=== PATIENT | female | born 1960 | race Caucasian/White ===

== ENCOUNTER 2017-03-20 06:33 | Day surgery (SDC) | payer MEDICAID ==
[~2017-03-20 06:33] MED LIST: ACETAMINOPHEN 1,000 MG/100 ML BTL IV ONE
[2017-03-20] MEDS ORDERED: BUPIVACAINE 0.25% W/EPI MPF 30ML VIAL IVP ONE (13:28)
[2017-03-20] MEDS ORDERED: ACETAMINOPHEN W/ CODEINE 300MG/30MG TABLET PO ONE (14:17)
[2017-03-20] MEDS ORDERED: PROPOFOL 10 MG/ML VIAL IV ONE (14:22)
[2017-03-20] MEDS ORDERED: LIDOCAINE 2% MDV (20MG/ML) 20ML VIAL IV ONE (14:22)
[2017-03-20] MEDS ORDERED: KETOROLAC 30 MG/ML VIAL IVP ONE (14:22)
[2017-03-20] MEDS ORDERED: SEVOFLURANE 250 ML INH ONE (14:22)
[2017-03-20] MEDS ORDERED: ONDANSETRON HCL IV 4 MG/2 ML VIAL IVP ONE (14:22)
[2017-03-20] MEDS ORDERED: FENTANYL PF 100MCG/2ML VIAL IV ONE (14:22)
[2017-03-20] MEDS ORDERED: MIDAZOLAM HCL 2MG/2ML VIAL IV ONE (14:22)
--- NOTE | 2017-03-24 09:50 | Operative Note ---
DATE OF SURGERY: 03/20/2017 Surgeon: Adilson Foreman DO PREOPERATIVE DIAGNOSES: 1. Torn medial meniscus of the left knee. 2. Chondromalacia of the left knee. POSTOPERATIVE DIAGNOSES: 1. Torn medial and lateral meniscus, left knee. 2. Medial mid patellar plica, left knee. 3. Chondromalacia of the patella, left knee. OPERATION: 1. Arthroscopic partial medial and lateral meniscectomy, left knee. 2. Arthroscopic resection of medial mid patellar plica. 3. Arthroscopic chondroplasty of patella, left knee. DESCRIPTION OF PROCEDURE: This 56-year-old female was taken to the operating room, placed in the supine position on the operating room table where general anesthesia was induced. The left lower extremity was elevated. It was exsanguinated and the tourniquet inflated to 300 mmHg. Arthroscopic knee sena applied. Left knee prepped with Hibiclens and draped in the usual sterile fashion. An inferolateral portal was established for the 4 mm arthroscope, and initial evaluation of the joint demonstrated normal appearance of the suprapatellar pouch but a medial mid patellar plica was present. There was also advanced degenerative disease of the patella, particularly on the median ridge and lateral facet. Utilizing an inferomedial portal, this was probed and grade 3 chondromalacia of the patella was identified and the chondroplasty was performed to stabilize the remaining articular cartilage there. The medial facet appeared to be relatively spared. The trochlea also appeared essentially normal, only minimal scuffing of the articular cartilage was present there. Resection of the medial mid patella plica was also performed. The lateral compartment was entered and the patient demonstrated a small radial tear of the lateral meniscus at approximately the 3-o'clock position. Utilizing the basket forceps and rotating shaver, we resected unstable flaps of the radial tear of the lateral meniscus. It was then re-probed and confirmed to be stable. The posterior horn was entirely normal. The intracondylar notch was examined and found to be normal. The medial compartment was entered and a complex tear of the medial meniscus was present. The apex of the tear being at approximately the 10-o'clock position. This was both flap and horizontal cleavage components. We utilized the basket forceps to resect back to the apex of the tear and then tapered in each direction to form a smooth contoured surface. We then used the rotating shaver to further smooth the trimmed edge of the meniscus. It was then re-probed and confirmed to be stable. The articular cartilage of both the medial and lateral compartments appeared to be essentially normal with only very, very minimal scuffing of the articular cartilage being identified but there were no unstable areas and it was not further disturbed. The joint was copiously irrigated and suctioned. The instruments were removed. The portals infiltrated with 0.25% Marcaine with epinephrine. Sterile dressings applied. Tourniquet and knee sena released and the patient taken to the recovery room in satisfactory condition. GROSS PATHOLOGY: This patient demonstrated grade 3 chondromalacia of the patella, complex tear of the posterior horn of the medial meniscus was present, a radial tear of the lateral meniscus also identified. CC: Dr. Mark KATZ
== END 2017-03-20 09:30 | disposition home or self-care (01) ==
LOC: SUR 06:33
PROVIDERS: ATTEND Orthopaedic Surgery
DX: S83.282A Other tear of lateral meniscus, current injury, left knee, initial encounter (principal); S83.242A Other tear of medial meniscus, current injury, left knee, initial encounter; M22.42 Chondromalacia patellae, left knee; E11.9 Type 2 diabetes mellitus without complications; Z79.4 Long term (current) use of insulin; Z79.84 Long term (current) use of oral hypoglycemic drugs; E03.9 Hypothyroidism, unspecified; I10 Essential (primary) hypertension; E78.00 Pure hypercholesterolemia, unspecified; M67.52 Plica syndrome, left knee
CPT/HCPCS: 29880; 29879; 01400; 36416; 82948; J1885; J2405; J3010

== ENCOUNTER 2018-02-26 19:38 | Emergency (ER) | payer MEDICAID ==
--- NOTE | 2018-02-26 19:52 | Emergency Department Record ---
History of Present Illness - General Chief Complaint: Dizziness Stated Complaint: DIZZY Time Seen by Provider: 02/26/18 19:41 Source: Patient Mode of Arrival: Ambulatory Limitations: No limitations - History of Present Illness Initial Comments: 57 yo female presents to ED for evaluation of "dizzy spells" that occur at random per the patient. Patient denies that changes in position or head movements specifically worsen her symptoms. Patient denies focal weakness symptoms, numbness, or tingling symptoms. Patient reports a history of previous symptoms, states that her thyroid was a problem previously. MD Complaint: Dizziness Onset/Timin -: Days(s) Timing: Unsure Description: "Room spinning" History of Same: Yes History of Trauma: No Severity: Moderate Improves With: Nothing Worsens With: Nothing Associated Symptoms: Denies other symptoms - Harley Coma Scale Eye Response: (4) Open spontaneously Motor Response: (6) Obeys commands Verbal Response: (5) Oriented Harley Total: 15 - Related Data Previous Rx's Medication Instructions Recorded Meclizine HCl [Antivert] 25 mg PO Q8H PRN #15 tablet 02/26/18 Allergies Allergy/AdvReac Type Severity Reaction Status Date / Time hydromorphone Allergy Severe ANAPHYLAXIS Verified 02/26/18 20:19 Influenza Virus Vaccines Allergy Severe unsure Verified 02/26/18 20:19 Tetanus Vaccines and Toxoid Allergy Severe SWELLING Verified 02/26/18 20:19 (GENERAL) Penicillins Allergy Mild HYPERSENSIT Verified 02/26/18 20:19 IVITY prednisone Allergy Mild PT UNSURE Verified 02/26/18 20:19 OF REACTION furosemide Allergy Unknown PT UNSURE Verified 02/26/18 20:19 OF REACTION tetracycline Allergy Unknown PT UNSURE Verified 02/26/18 20:19 OF REACTION Review of Systems Constitutional: Denies: Chills, Fever, Malaise, Night sweats Eyes: Denies: Eye discharge, Eye pain ENT: Denies: Congestion, Ear pain, Epistaxis Respiratory: Denies: Cough, Dyspnea Cardiovascular: Denies: Chest pain, Dyspnea on exertion Endocrine: Denies: Fatigue, Heat or cold intolerance Gastrointestinal: Denies: Abdominal pain, Nausea, Vomiting Genitourinary: Denies: Incontinence, Retention Musculoskeletal: Denies: Arthralgia, Back pain Skin: Denies: Bruising, Change in color Neurological: Reports: Vertigo. Denies: Abnormal gait, Confusion, Headache Psychiatric: Denies: Anxiety Hematological/Lymphatic: Denies: Anemia, Blood Clots Past Medical History - SOCIAL HISTORY Smoking Status: Never smoker - RESPIRATORY Hx Respiratory Disorders: Yes Hx Asthma: Yes (good control) Hx Sleep Apnea: Yes Hx of CPAP: Yes (doesnt uses all the time) - CARDIOVASCULAR Hx Cardio Disorders: Yes Hx Hypertension: Yes (good control on meds) - NEURO Hx Neuro Disorders: No - GI Hx GI Disorders: Yes Hx Pancreatitis: Yes (no problems recently) Hx Wt Loss/Wt Gain: Yes (recent 15 -20 lbs,loss) Hx of Polyps: Yes - Hx Genitourinary Disorders: No - ENDOCRINE Hx Endocrine Disorders: Yes Hx Diabetes: Yes Hx Thyroid Disease: Yes Comment:: blood sugars up and down - MUSCULOSKELETAL Hx Musculoskeletal Disorders: Yes Hx Arthritis: Yes Comment:: left knee pain - PSYCH Hx Psych Problems: Yes Hx Anxiety: Yes Hx Depression: Yes - HEMATOLOGY/ONCOLOGY Hx Hematology/Oncology Disorders: Yes Hx Blood Transfusions: Yes Hx Blood Transfusion Reaction: Yes Family Medical History Hx Cancer: Father *Cancer Comment: father-colon cancer Physical Exam - General General Appearance: Alert, Oriented x3, Cooperative Limitations: No limitations - Head Head exam: Atraumatic, Normocephalic, Normal inspection Head exam detail: negative: Abrasion, Contusion, Gurrola's sign, General tenderness, Hematoma, Laceration - Eye Eye exam: Normal appearance. negative: Conjunctival injection, Periorbital swelling, Periorbital tenderness, Scleral icterus - ENT Ear exam: negative: Auricular hematoma, Auricular trauma Nasal Exam: negative: Active bleeding, Discharge, Dried blood, Foreign body Mouth exam: negative: Drooling, Laceration, Muffled voice, Tongue elevation - Neck Neck exam: Normal inspection. negative: Meningismus, Tenderness - Respiratory Respiratory exam: Normal lung sounds bilaterally. negative: Rales, Respiratory distress, Rhonchi, Stridor - Cardiovascular Cardiovascular Exam: Regular rate, Normal rhythm, Normal heart sounds - GI/Abdominal GI/Abdominal exam: Soft. negative: Rebound, Rigid, Tenderness - Rectal Rectal exam: Deferred - exam: Deferred - Extremities Extremities exam: Normal inspection. negative: Calf tenderness, Pedal edema, Tenderness - Back Back exam: Denies: CVA tenderness (R), CVA tenderness (L) - Neurological Neurological exam: Alert, Normal gait, Oriented X3 - Psychiatric Psychiatric exam: Normal affect, Normal mood - Skin Skin exam: Normal color. negative: Abrasion Type of lesion: negative: abrasion Course - Reevaluation(s) Reevaluation #1: 02/26/18 19:53 EKG: NSR 93 Normal axis, normal intervals No acute ST-T wave changes No change from 12/11/16 Reevaluation #2: 02/26/18 20:55 Labs reviewed, glucose 229, labs are otherwise grossly unremarkable for an acute process. Patient was updated on all results, reports improvement in her symptoms. Patient is smiling on examination, turning her head left-right without symptoms , and has no evidence for cerebellar dysfunction on examination. Patient appears stable for discharge at this time. Medical Decision Making - Lab Data Result diagrams: 02/26/18 19:59 02/26/18 19:59 Disposition Disposition: Discharge Clinical Impression: Vertigo Disposition: Home, Self-Care Condition: (2) Stable Instructions: Dizziness (ED) Additional Instructions: Return to ED if your symptoms worsen or if you have any concerns. Antivert as directed. Follow-up with your family doctor in 3-5 days as directed. Prescriptions: Meclizine HCl [Antivert] 25 mg PO Q8H PRN #15 tablet PRN Reason: Dizziness Forms: Patient Portal Access Time of Disposition: 21:03 Quality - Quality Measures Quality Measures: N/A - Blood Pressure Screening Does Patient Have Any of the Following: No Blood Pressure Classification: Pre-Hypertensive BP Reading Systolic Measurement: 143 Diastolic Measurement: 83 Screening for High Blood Pressure: < Pre-Hypertensive BP, F/U Documented > [ [id number]] Pre-Hypertensive Follow-up Interventions: Referral to alternative/primary care provider.
[2018-02-26] MEDS ORDERED: 0.9 % SODIUM CHLORIDE 1000ML 1,000 ML IV SCH (20:00)
[2018-02-26 20:11] LABS: BASO % 0.2 % (0-6); EOS % 1.1 % (0-6); GRAN % 52.8 % (47-80); HEMATOCRIT 38.4 % (35.0-47.0); HEMOGLOBIN 12.5 gm/dl (11.6-16.0); LYMPH % 37.1 % (16-45); MEAN CELL VOLUME 90.6 fl (81-97); MEAN CORPUSCULAR HEMOGLOBIN 29.5 pg (27-33); MEAN CORPUSCULAR HGB CONC 32.6 g/dl (32-36); MEAN PLATELET VOLUME 10.2 fl (7.4-10.4); MONO % 8.8 % (0-9); PLATELET COUNT 532 K/uL (130-400); RED BLOOD COUNT 4.24 M/uL (3.80-5.40); RED CELL DISTRIBUTION WIDTH 13.6 % (11.5-14.5); WHITE BLOOD COUNT W/O DIFF 12.2 K/uL (4.2-12.2)
[2018-02-26] MEDS ORDERED: MECLIZINE 25 MG TABLET PO ONE (20:14)
[2018-02-26 20:21] LABS: BILIRUBIN,TOTAL < 0.20 mg/dL (0.2-1.0); BLOOD UREA NITROGEN 15 mg/dL (6-20); CREATININE 0.5 mg/dL (0.5-0.9); EST GLOMERULAR FILTRATION RATE > 60 mL/min; TOTAL PROTEIN 7.2 g/dL (6.6-8.7)
[2018-02-26 20:23] LABS: GLUCOSE,RANDOM 229 mg/dL (74-109)
[2018-02-26 20:26] LABS: ALB/GLOB RATIO 1.3 (1.1-1.8); ALBUMIN 4.1 g/dL (4.0-5.0); ALKALINE PHOSPHATASE 101 U/L (35-104); ALT/SGPT 27 U/L (<33); AST/SGOT 17 U/L (10.0-35.0)
== END 2018-02-26 21:30 | disposition home or self-care (01) ==
LOC: ER 19:38
DX: R42 Dizziness and giddiness (principal); E11.9 Type 2 diabetes mellitus without complications; I10 Essential (primary) hypertension; Z79.84 Long term (current) use of oral hypoglycemic drugs
CPT/HCPCS: 80053; 84443; 85025; 93005; 93010; 96360; 99284; J7030

== ENCOUNTER 2018-03-08 07:30 | Emergency (ER) | payer MEDICAID ==
[2018-03-08] MEDS ORDERED: 0.9 % SODIUM CHLORIDE 1,000 ML BAG IV ONE (07:44)
[2018-03-08] MEDS ORDERED: ACETAMINOPHEN 1,000 MG/100 ML BTL IVPB ONE (07:49)
--- NOTE | 2018-03-08 07:53 | Emergency Department Record ---
History of Present Illness - General Chief complaint: Pain Stated complaint: ALL OVER BODY PAIN Time Seen by Provider: 03/08/18 07:39 Source: Patient Mode of Arrival: Ambulatory Limitations: No limitations - History of Present Illness Initial comments: The patient is here due to a 3 week hx of total body pain. She has been having pain over her entire body since the end of January. The pain is mainly located in her muscles and joints. The patient states she has tried multiple different remedies including hot tubs and massage with no relief. She had recently been on Lipitor and thought that could be causing it so she stopped it a few weeks ago but the symptoms are no better. She denies any fever, chills, CP, SOB, nausea, vomiting, or diarrhea. The patient has had similar problems in the past but not as bad. Complaint: Diffuse Onset/Timin -: Week(s) Location: Other History of Same: Yes Severity scale (1-10): 10 Quality: Sharp Consistency: Constant Improves with: Nothing Worsens with: Nothing Associated Symptoms: Arthralgias - Related Data Previous Rx's Medication Instructions Recorded Meclizine HCl [Antivert] 25 mg PO Q8H PRN #15 tablet 02/26/18 Naproxen [Naprosyn] 500 mg PO BID #14 tablet. 03/08/18 Allergies Allergy/AdvReac Type Severity Reaction Status Date / Time hydromorphone Allergy Severe ANAPHYLAXIS Verified 02/26/18 20:19 Influenza Virus Vaccines Allergy Severe unsure Verified 02/26/18 20:19 Tetanus Vaccines and Toxoid Allergy Severe SWELLING Verified 02/26/18 20:19 (GENERAL) Penicillins Allergy Mild HYPERSENSIT Verified 02/26/18 20:19 IVITY prednisone Allergy Mild PT UNSURE Verified 02/26/18 20:19 OF REACTION furosemide Allergy Unknown PT UNSURE Verified 02/26/18 20:19 OF REACTION tetracycline Allergy Unknown PT UNSURE Verified 02/26/18 20:19 OF REACTION Travel Screening - Travel/Exposure Within Last 30 Days Have you traveled within the last 30 days?: No Review of Systems Constitutional: Reports: Malaise. Denies: Chills, Fever Eyes: Denies: Eye discharge ENT: Denies: Congestion Respiratory: Denies: Cough Cardiovascular: Denies: Chest pain Endocrine: Reports: Fatigue Gastrointestinal: Denies: Abdominal pain Genitourinary: Denies: Dysuria Musculoskeletal: Reports: Arthralgia. Denies: Back pain Past Medical History - SOCIAL HISTORY Smoking Status: Never smoker Alcohol Use: None Drug Use: None - RESPIRATORY Hx Respiratory Disorders: Yes Hx Asthma: Yes (good control) Hx Sleep Apnea: Yes Hx of CPAP: Yes (doesnt uses all the time) - CARDIOVASCULAR Hx Cardio Disorders: Yes Hx Hypertension: Yes (good control on meds) - NEURO Hx Neuro Disorders: No - GI Hx GI Disorders: Yes Hx Pancreatitis: Yes (no problems recently) Hx Wt Loss/Wt Gain: Yes (recent 15 -20 lbs,loss) Hx of Polyps: Yes - Hx Genitourinary Disorders: No - ENDOCRINE Hx Endocrine Disorders: Yes Hx Diabetes: Yes Hx Thyroid Disease: Yes Comment:: blood sugars up and down - MUSCULOSKELETAL Hx Musculoskeletal Disorders: Yes Hx Arthritis: Yes Comment:: left knee pain - PSYCH Hx Psych Problems: Yes Hx Anxiety: Yes Hx Depression: Yes - HEMATOLOGY/ONCOLOGY Hx Hematology/Oncology Disorders: Yes Hx Blood Transfusions: Yes Hx Blood Transfusion Reaction: Yes Family Medical History Any Significant Family History?: Yes Hx Cancer: Father *Cancer Comment: father-colon cancer Physical Exam - General General Appearance: Alert, Oriented x3, Cooperative, No acute distress - Head Head exam: Atraumatic, Normocephalic, Normal inspection - Eye Eye exam: Normal appearance, PERRL, EOMI - ENT Throat exam: Normal inspection. negative: Tonsillar erythema, Tonsillar exudate - Neck Neck exam: Normal inspection, Full ROM. negative: Tenderness - Respiratory Respiratory exam: Normal lung sounds bilaterally. negative: Respiratory distress - Cardiovascular Cardiovascular Exam: Regular rate, Normal rhythm, Normal heart sounds - GI/Abdominal GI/Abdominal exam: Soft, Normal bowel sounds. negative: Tenderness - Extremities Extremities exam: Normal inspection, Full ROM, Normal capillary refill. negative: Tenderness - Back Back exam: Reports: Normal inspection - Neurological Neurological exam: Alert, Normal gait. negative: Abnormal gait, Motor sensory deficit - Psychiatric Psychiatric exam: negative: Anxious - Skin Skin exam: negative: Rash Course Vital Signs 03/08/18 07:34 Temperature 98.0 F Pulse Rate 99 H Respiratory 20 Rate Blood Pressure 154/105 Pulse Ox 98 - Reevaluation(s) Reevaluation #1: The patient is doing better at this time. Her pain is improving and she feels better and well enough to go home. I did discuss the need for F/U wit her PCP for recheck and repeat lab work. 03/08/18 08:55 Medical Decision Making - Data Complexity MDM Data: Labs Ordered and/or Reviewed, EKG Ordered and/or Reviewed - Lab Data Result diagrams: 03/08/18 07:55 03/08/18 07:55 - EKG Data -: EKG Interpreted by Me EKG: No Acute Changes, Normal EKG Disposition Disposition: Discharge Clinical Impression: Chronic pain disorder Disposition: Home, Self-Care Condition: (2) Stable Instructions: Chronic Pain (ED) Additional Instructions: Please continue your regular medicines and use the naprosyn for pain with food. Please see your family doctor for recheck next week and return to the ER for any worsening symptoms. Prescriptions: Naproxen [Naprosyn] 500 mg PO BID #14 tablet.dr Forms: Patient Portal Access Time of Disposition: 08:57 Quality - Quality Measures Quality Measures: N/A - Blood Pressure Screening View Details: Yes Does Patient Have Any of the Following: Active Dx of HTN Blood Pressure Classification: Pre-Hypertensive BP Reading Systolic Measurement: 121 Diastolic Measurement: 74 Screening for High Blood Pressure: Patient Exclusion, Hx of HTN [G9744]
[2018-03-08 08:01] LABS: BASO % 0.3 % (0-6); EOS % 1.6 % (0-6); GRAN % 57.2 % (47-80); HEMATOCRIT 40.4 % (35.0-47.0); HEMOGLOBIN 13.1 gm/dl (11.6-16.0); LYMPH % 32.1 % (16-45); MEAN CELL VOLUME 90.6 fl (81-97); MEAN CORPUSCULAR HEMOGLOBIN 29.4 pg (27-33); MEAN CORPUSCULAR HGB CONC 32.4 g/dl (32-36); MEAN PLATELET VOLUME 10.3 fl (7.4-10.4); MONO % 8.8 % (0-9); PLATELET COUNT 520 K/uL (130-400); RED BLOOD COUNT 4.46 M/uL (3.80-5.40); WHITE BLOOD COUNT W/O DIFF 15.4 K/uL (4.2-12.2)
[2018-03-08 08:14] LABS: BLOOD UREA NITROGEN 12 mg/dL (6-20)
[2018-03-08 08:15] LABS: CREATININE 0.5 mg/dL (0.5-0.9); EST GLOMERULAR FILTRATION RATE > 60 mL/min; TOTAL PROTEIN 7.6 g/dL (6.6-8.7)
[2018-03-08 08:17] LABS: GLUCOSE,RANDOM 251 mg/dL (74-109)
[2018-03-08 08:20] LABS: ALB/GLOB RATIO 1.2 (1.1-1.8); ALBUMIN 4.2 g/dL (4.0-5.0); ALKALINE PHOSPHATASE 105 U/L (35-104); ALT/SGPT 43 U/L (<33); AST/SGOT 38 U/L (10.0-35.0); C-REACTIVE PROTEIN 1.69 mg/dL (<0.5); CREATINE PHOSPHOKINASE 672 U/L (26-192)
[2018-03-08] MEDS ORDERED: KETOROLAC 30 MG/ML VIAL IVP ONE (08:22)
[2018-03-08 08:27] LABS: CKMB 1.5 ng/mL (<3.77)
[2018-03-08 08:31] LABS: THYROID STIMULATING HORMONE 6.82 uIU/mL (0.270-4.20)
[2018-03-08 08:35] LABS: ERYTHROCYTE SEDIMENTATION RATE 23 mm/hr (0-30)
== END 2018-03-08 09:16 | disposition home or self-care (01) ==
LOC: ER 07:30
DX: G89.4 Chronic pain syndrome (principal); E11.9 Type 2 diabetes mellitus without complications; I10 Essential (primary) hypertension
CPT/HCPCS: 99284 ×2; 96365; 96375; 82550; 85025; 85651; 86140; 82553; 80053; 84443; 84484; 93005; 93010; J1885; J7030

== ENCOUNTER 2018-05-05 19:22 | Emergency (ER) | payer MEDICAID ==
[2018-05-05] MEDS ORDERED: ONDANSETRON HCL IV 4 MG/2 ML VIAL IV ONE (19:49)
[2018-05-05] MEDS ORDERED: 0.9 % SODIUM CHLORIDE 1,000 ML BAG IV ONE (19:49)
[2018-05-05 20:15] LABS: URINE APPEARANCE SL CLOUDY; URINE BILIRUBIN SMALL (NEGATIVE); URINE BLOOD TRACE-I (NEGATIVE); URINE COLOR YELLOW; URINE GLUCOSE (UA) NEGATIVE (NEGATIVE); URINE KETONE 40 mg/dL (NEGATIVE); URINE LEUKOCYTE ESTERASE SMALL (NEGATIVE); URINE NITRITE NEGATIVE (NEGATIVE); URINE UROBILINOGEN 0.2 E.U./dL (0.20 - 1.00)
--- NOTE | 2018-05-05 20:18 | Emergency Department Record ---
History of Present Illness - General Chief Complaint: Abdominal Pain Stated Complaint: abdominal pain Time Seen by Provider: 05/05/18 19:34 Source: Patient Mode of Arrival: Wheelchair Limitations: No limitations - History of Present Illness Initial Comments: pt has abd pain with nausea for a week. no c/d. pt brought over from [facility] care. pt has a hx of pancreatitis and splenectomy Complaint: Abdominal pain Onset/Timin -: Days(s) Location: LLQ, RLQ Radiation: Suprapubic Migration to: RLQ Severity: Moderate Severity scale (1-10): 7 Quality: Sharp Consistency: Constant Improves With: Nothing Worsens With: Nothing Context: Other Associated Symptoms: Nausea - Related Data LMP (females 10-50): Unknown Patient : No Home Medications Medication Instructions Recorded Confirmed Last Taken Levothyroxine Sodium 175 mcg PO QAM 05/05/18 05/05/18 Unknown Naproxen [Naprosyn] 500 mg PO BID PRN 05/05/18 05/05/18 Unknown Previous Rx's Medication Instructions Recorded Cephalexin [Keflex] 500 mg PO QID #40 cap 05/05/18 Allergies Allergy/AdvReac Type Severity Reaction Status Date / Time hydromorphone Allergy Severe ANAPHYLAXIS Verified 05/05/18 22:42 Influenza Virus Vaccines Allergy Severe unsure Verified 05/05/18 22:42 Tetanus Vaccines and Toxoid Allergy Severe SWELLING Verified 05/05/18 22:42 (GENERAL) Penicillins Allergy Mild HYPERSENSIT Verified 05/05/18 22:42 IVITY prednisone Allergy Mild PT UNSURE Verified 05/05/18 22:42 OF REACTION furosemide Allergy Unknown PT UNSURE Verified 05/05/18 22:42 OF REACTION tetracycline Allergy Unknown PT UNSURE Verified 05/05/18 22:42 OF REACTION Travel Screening - Travel/Exposure Within Last 30 Days Have you traveled within the last 30 days?: No - Travel Symptoms Symptom Screening: Fever (Subjective), Weakness Review of Systems Reviewed: No additional complaints except as noted below Constitutional: Reports: As per HPI. Denies: Chills, Fever, Malaise, Night sweats, Weakness, Weight change Eyes: Reports: As per HPI. Denies: Eye discharge, Eye pain, Photophobia, Vision change ENT: Reports: As per HPI. Denies: Congestion, Dental pain, Ear pain, Epistaxis , Hearing loss, Throat pain Respiratory: Reports: As per HPI. Denies: Cough, Dyspnea, Hemoptysis, Stridor, Wheezes Cardiovascular: Reports: As per HPI. Denies: Arrhythmia, Chest pain, Dyspnea on exertion, Edema, Murmurs, Orthopnea, Palpitations, Paroxysmal nocturnal dyspnea, Rheumatic Fever, Syncope Endocrine: Reports: As per HPI. Denies: Fatigue, Heat or cold intolerance, Polydipsia, Polyuria Gastrointestinal: Reports: As per HPI. Denies: Abdominal pain, Constipation, Diarrhea, Hematemesis, Hematochezia, Melena, Nausea, Vomiting Genitourinary: Reports: As per HPI. Denies: Abnormal menses, Discharge, Dyspareunia, Dysuria, Frequency, Hematuria, Incontinence, Retention, Urgency Musculoskeletal: Reports: As per HPI. Denies: Arthralgia, Back pain, Gout, Joint swelling, Myalgia, Neck pain Skin: Reports: As per HPI. Denies: Bruising, Change in color, Change in hair/ nails, Lesions, Pruritus, Rash Neurological: Reports: As per HPI. Denies: Abnormal gait, Confusion, Headache, Numbness, Paresthesias, Seizure, Tingling, Tremors, Vertigo, Weakness Psychiatric: Reports: As per HPI. Denies: Anxiety, Auditory hallucinations, Depression, Homicidal thoughts, Suicidal thoughts, Visual hallucinations Hematological/Lymphatic: Reports: As per HPI. Denies: Anemia, Blood Clots, Easy bleeding, Easy bruising, Swollen glands Past Medical History - SOCIAL HISTORY Smoking Status: Never smoker Alcohol Use: None Drug Use: None - RESPIRATORY Hx Respiratory Disorders: Yes Hx Asthma: Yes (good control) Hx Sleep Apnea: Yes Hx of CPAP: Yes (doesnt uses all the time) - CARDIOVASCULAR Hx Cardio Disorders: Yes Hx Hypertension: Yes (good control on meds) - NEURO Hx Neuro Disorders: Yes Hx Neuropathy: Yes - GI Hx GI Disorders: Yes Hx Obstructive Bowel: Yes Hx Pancreatitis: Yes (no problems recently) Hx Wt Loss/Wt Gain: Yes (recent 15 -20 lbs,loss) Hx of Polyps: Yes - Hx Genitourinary Disorders: No - ENDOCRINE Hx Endocrine Disorders: Yes Hx Diabetes: Yes Hx Thyroid Disease: Yes Comment:: blood sugars up and down - MUSCULOSKELETAL Hx Musculoskeletal Disorders: Yes Hx Arthritis: Yes Hx Fibromyalgia: Yes Comment:: left knee pain - PSYCH Hx Psych Problems: Yes Hx Anxiety: Yes Hx Depression: Yes - HEMATOLOGY/ONCOLOGY Hx Hematology/Oncology Disorders: Yes Hx Blood Transfusions: Yes Hx Blood Transfusion Reaction: Yes Family Medical History Any Significant Family History?: Yes Hx Cancer: Father *Cancer Comment: father-colon cancer Physical Exam - General General Appearance: Alert, Oriented x3, Cooperative, Mild distress - Head Head exam: Normal inspection - Eye Eye exam: Normal appearance, PERRL, EOMI Pupils: Normal accommodation - ENT ENT exam: Normal exam, Mucous membranes moist, Normal external ear exam, Normal orophraynx Ear exam: Normal external inspection. negative: External canal tenderness Nasal Exam: Normal inspection. negative: Discharge, Sinus tenderness Mouth exam: Normal external inspection, Tongue normal Teeth exam: Normal inspection. negative: Dental caries Throat exam: Normal inspection. negative: Tonsillar erythema, Tonsillar exudate - Neck Neck exam: Normal inspection, Full ROM. negative: Tenderness - Respiratory Respiratory exam: Normal lung sounds bilaterally. negative: Respiratory distress - Cardiovascular Cardiovascular Exam: Normal rhythm, Normal heart sounds, Tachycardia - GI/Abdominal GI/Abdominal exam: Soft, Normal bowel sounds, Tenderness - Rectal Rectal exam: Deferred - exam: Deferred - Extremities Extremities exam: Normal inspection, Full ROM, Normal capillary refill. negative: Tenderness - Back Back exam: Reports: Normal inspection, Full ROM. Denies: Muscle spasm, Rash noted, Tenderness - Neurological Neurological exam: Alert, CN II-XII intact, Normal gait, Oriented X3 - Psychiatric Psychiatric exam: Normal affect, Normal mood - Skin Skin exam: Dry, Intact, Normal color, Warm Course Vital Signs 05/05/18 05/05/18 19:24 20:11 Temperature 98.9 F 99.3 F Pulse Rate 112 H Pulse Rate [ 98 H Pulse Ox Probe] Respiratory 20 20 Rate Blood Pressure 104/44 Blood Pressure 148/74 [Right Arm] Pulse Ox 97 95 - Reevaluation(s) Reevaluation #1: 05/05/18 22:51 ct shows wall thickening of cecum and ascending colon , colitis vs malignancy. pt states she had a colonoscopy a year ago and that she has them every 3 years Disposition Disposition: Discharge Clinical Impression: Pyelonephritis, Colitis Disposition: Home, Self-Care Condition: (1) Good Instructions: Kidney Infection (ED), Colitis (ED) Additional Instructions: follow up with family doctor. return sooner if worse. push fluids Prescriptions: Cephalexin [Keflex] 500 mg PO QID #40 cap Forms: Patient Portal Access Quality - Quality Measures Quality Measures: N/A - Blood Pressure Screening Does Patient Have Any of the Following: No Blood Pressure Classification: Normal BP Reading Systolic Measurement: 104 Diastolic Measurement: 44 Screening for High Blood Pressure: < Normal BP, F/U Not Required > [G8783]
[2018-05-05 20:24] LABS: URINE BACTERIA 4+; URINE EPITHELIAL CELLS 16 - 20 (FEW); URINE MUCUS HEAVY; URINE WBC 21 - 35 (0-2/hpf); URINE WHITE BLOOD CELL CAST FEW /lpf
[2018-05-05 21:35] LABS: URINE APPEARANCE CLEAR; URINE BILIRUBIN NEGATIVE (NEGATIVE); URINE BLOOD TRACE-I (NEGATIVE); URINE COLOR YELLOW; URINE GLUCOSE (UA) NEGATIVE (NEGATIVE); URINE KETONE 15 mg/dL (NEGATIVE); URINE LEUKOCYTE ESTERASE MODERATE (NEGATIVE); URINE NITRITE NEGATIVE (NEGATIVE); URINE PROTEIN NEGATIVE (NEGATIVE); URINE UROBILINOGEN 0.2 E.U./dL (0.20 - 1.00)
[2018-05-05 21:45] LABS: URINE BACTERIA 2+; URINE MUCUS MODERATE
[2018-05-05] MEDS ORDERED: CIPROFLOXACIN LACTATE/D5W 400 MG/200 ML BAG IVPB ONE (22:34)
[2018-05-05] MEDS ORDERED: CEPHALEXIN 500 MG CAPSULE PO STA (23:56)
== END 2018-05-06 00:01 | disposition home or self-care (01) ==
LOC: ER 19:22
DX: N10 Acute pyelonephritis (principal)
CPT/HCPCS: 74177; 81001; 83605; 96374; 99283; J2405; J7030